=== PATIENT | male | born 1945 | race Caucasian/White ===

== ENCOUNTER 2019-04-07 10:10 | Inpatient (IN) | payer MEDICARE ==
[~2019-04-07] VITALS: Ht 185.4 cm; Wt 86.4 kg
[2019-04-07] MEDS ORDERED: TRESIBA FL100 UNIT/1 SC (13:29)
[2019-04-07] MEDS ORDERED: INVOKANA300 MG PO (13:29)
[2019-04-07] MEDS ORDERED: ELIQUIS5 MG PO (13:30)
[2019-04-07] MEDS ORDERED: CRESTOR10 MG PO (13:34)
[2019-04-07] MEDS ORDERED: HUMALOG 30100 UNITS/ SC (13:35)
--- NOTE | 2019-04-07 14:00 | NUR ---
CHRIST NOTE; DR. GEIGER NOTIFIED PATIENT CURRENTLY TAKING ELIQUIS 5MG DAILY WITH LAST DOSE 04/06/19 AM; OK TO PROCEED WITH SURGERY.
[2019-04-07 15:18] LABS: APPEARANCE CLEAR (CLEAR); BILIRUBIN NEGATIVE (NEGATIVE); COLOR YELLOW (YELLOW); GLUCOSE 1000 mg/dL (NEGATIVE); KETONE NEGATIVE (NEGATIVE); NITRITE NEGATIVE (NEGATIVE); PROTEIN NEGATIVE (NEGATIVE); SPECIFIC GRAVITY 1.015 (1.005-1.020); UROBILINOGEN NORMAL (NORMAL)
[2019-04-07 15:28] LABS: BASOPHILS 0.7 % (0-2); EOSINOPHILS 4.1 % (0-7); HEMATOCRIT 53.8 % (42.0-54.0); HEMOGLOBIN 19.1 g/dL (13.5-17.5); IMMATURE GRANULOCYTES 0.1 % (0-5); LYMPHOCYTES 22.7 % (15-50); MCH 32.9 pg (26.0-34.0); MCHC 35.5 g/dL (31.0-37.0); MCV 92.8 fL (80.0-100.0); MEAN PLATELET VOLUME 11.3 fL (7.4-10.4); MONOCYTES 7.5 % (2-11); NEUTROPHILS 64.9 % (40-80); PLATELET COUNT 187 10x3/uL (130-400); RDW 13.7 % (11.5-14.5); WBC 9.5 10x3/uL (4.8-10.8)
[2019-04-07 15:32] LABS: INR 0.95 (0.85-1.17); PROTIME 12.2 SECONDS (11.6-15.0)
[2019-04-07 15:33] LABS: APTT 28.5 SECONDS (22.8-39.4)
[2019-04-07 15:41] LABS: ANION GAP 13.5 mmol/L (8-16); CALCIUM 9.4 mg/dL (8.5-10.1); CARBON DIOXIDE 26.6 mmol/L (21.0-32.0); CREATININE - SERUM 1.1 mg/dL (0.6-1.3); POTASSIUM - SERUM 4.1 mmol/L (3.5-5.1)
[2019-04-08 06:15] VITALS: BP 138/67; BMI 25.1
--- NOTE | 2019-04-08 08:21 | NUR ---
0750- HIBICLEANSE / ALCOHOL PREP PRIOR TO CHLORAPREP
[2019-04-08 11:10] VITALS: BP 128/68
--- NOTE | 2019-04-08 11:20 | NUR ---
RECEIVED TO ROOM 2212 VIA BED FROM PACU. A/O X3. SKIN INTACT WITHOUT REDNESS EXCEPT INCISION TO RIGHT SHOULDER WHICH HAS A DRY INTACT DRESSING IN PLACE. NEURO CHECKS WNL. NO C/O PAIN AT THIS TIME. AT BEDSIDE.
[2019-04-08 11:25] VITALS: Ht 185.4 cm; Wt 86.4 kg
[2019-04-08 11:35] VITALS: BP 119/68
[2019-04-08 12:53] VITALS: BP 85/50
[2019-04-08 16:13] VITALS: BP 124/48
--- NOTE | 2019-04-08 16:47 | NUR ---
UP TO BR WITH ONE PERSON MIN ASSIST. UNABLE TO VOIDE AT THIS TIME. FSBS [address] GEIGER NOTIFIED OF SAME. NEW ORDERS RECEIVED.
--- NOTE | 2019-04-08 20:00 | NUR ---
UP AD ROXIE IN ROOM. NO COMPLAITNS OF PAIN AT PRESENT. DRESSING TO RIGHT SHOULDER INTACT WITHOUT DRAINAGE. SLING IN PLACE. IV TO LEFT HAND INTACT WITHOUT REDNESS OR EDEMA NOTED. CL IN REACH.
[2019-04-09 01:27] VITALS: BP 133/59
--- NOTE | 2019-04-09 01:30 | NUR ---
UNABLE TO VOID. BLADDER DISTENDED. IN AND OUT CATH WITH 1100 CC CLEAR YELLOW URINE RETURNED. TOLERATED WELL. .
[2019-04-09 05:45] VITALS: BP 153/64
[2019-04-09 06:29] LABS: BASOPHILS 0.4 % (0-2); EOSINOPHILS 1.4 % (0-7); HEMATOCRIT 44.9 % (42.0-54.0); IMMATURE GRANULOCYTES 0.2 % (0-5); LYMPHOCYTES 9.3 % (15-50); MCH 31.9 pg (26.0-34.0); MCHC 33.9 g/dL (31.0-37.0); MCV 94.1 fL (80.0-100.0); MEAN PLATELET VOLUME 11.3 fL (7.4-10.4); MONOCYTES 11.2 % (2-11); NEUTROPHILS 77.5 % (40-80); PLATELET COUNT 168 10x3/uL (130-400); RBC 4.77 10x6/uL (4.20-6.10); RDW 13.7 % (11.5-14.5); WBC 9.6 10x3/uL (4.8-10.8)
[2019-04-09 06:41] LABS: HEMOGLOBIN 15.2 g/dL (13.5-17.5)
[2019-04-09 06:42] LABS: ANION GAP 14.1 mmol/L (8-16); CALCIUM 8.4 mg/dL (8.5-10.1); CARBON DIOXIDE 25.3 mmol/L (21.0-32.0); CREATININE - SERUM 1.2 mg/dL (0.6-1.3); POTASSIUM - SERUM 4.4 mmol/L (3.5-5.1)
--- NOTE | 2019-04-09 08:15 | NUR ---
PT UP AMBULATING IN ROOM. NO ACUTE DISTRESS NOTED. PT DOES REPORT PAIN 6/10 AT THIS TIME TO RIGHT SHOULDER. DRESSING C/D/I TO RIGHT SHOULDER WITH SHOULDER IMMOBILIZER IN PLACE. IV TO LEFT HAND SALINE LOC'D. SITE WITHOUT REDNESS OR EDEMA. PT DOES VOICE DIFFICULTY URINATING, BUT VOICES RECENT CATH. PT VOICES WANTING TO WAIT AND BEING ABLE TO SEE IF ABLE TO VOID. DENIES FURTHER NEEDS AT THIS TIME. CL WITHIN REACH. ENCOURAGED TO CALL WITH NEEDS. CONTINUE POC
[2019-04-09 09:39] VITALS: BP 93/60
--- NOTE | 2019-04-09 12:20 | NUR ---
PT REPORTS INABILITY TO VOID, VOICING "I GIVE IT 10 DROPS AT A TIME AND THAT IS IT." PT BLADDER SCANNED AT THIS TIME 902ML SCANNED. INFORMED PT THAT STAFF WOULD CONTACT REGARDING MATTER. PT VOICES UNDERSTANDING.
--- NOTE | 2019-04-09 12:25 | NUR ---
CONTACTED DR. GEIGER REGARDING PT INABILITY TO VOID. ORDERED FOR PT TO HAVE F/C PLACED, START SEPTRA 1 TAB BID PO UNTIL CATHETER REMOVED AND CONSULT UROLOGY. ORDERS PLACED
[2019-04-09 12:56] VITALS: BP 151/67
--- NOTE | 2019-04-09 13:02 | NUR ---
ENTERED PT ROOM TO INITIATE F/C. PT VOICES VOIDING IN TOILET. DISCUSSED ORDERS FROM DR. GEIGER FOR F/C PLACEMENT. PT VOICES THAT HE DOES NOT PRESENTLY FEEL THAT HE NEEDS A F/C, REFUSES F/C PLACEMENT AT THIS TIME. URINAL PROVIDED TO PT TO VOID IN URINAL TO BE ABLE TO MONITOR URINE OUTPUT. PT VOICES UNDERSTANDING
[2019-04-09 17:23] VITALS: BP 137/68
[2019-04-09 21:10] VITALS: BP 174/90
[2019-04-10 01:14] VITALS: BP 129/61
--- NOTE | 2019-04-10 05:00 | NUR ---
I have reviewed this patient and I concur with the Shift Assessment completed by the Licensed Practical Nurse today this shift.
[2019-04-10 05:38] VITALS: BP 105/60
[2019-04-10 06:04] LABS: BASOPHILS 0.3 % (0-2); EOSINOPHILS 1.6 % (0-7); HEMATOCRIT 45.3 % (42.0-54.0); HEMOGLOBIN 15.4 g/dL (13.5-17.5); IMMATURE GRANULOCYTES 0.3 % (0-5); LYMPHOCYTES 13.6 % (15-50); MCH 31.8 pg (26.0-34.0); MCV 93.6 fL (80.0-100.0); MEAN PLATELET VOLUME 11.4 fL (7.4-10.4); MONOCYTES 13.4 % (2-11); NEUTROPHILS 70.8 % (40-80); PLATELET COUNT 192 10x3/uL (130-400); RBC 4.84 10x6/uL (4.20-6.10); RDW 13.8 % (11.5-14.5); WBC 11.9 10x3/uL (4.8-10.8)
[2019-04-10] MEDS ORDERED: NORCO-7.5 PO (07:53)
[2019-04-10] MEDS ORDERED: VALIUM5 MG PO (07:54)
[2019-04-10 09:40] VITALS: BP 116/66
--- NOTE | 2019-04-10 11:09 | NUR ---
IV THERAPY REMOVED FROM LEFT HAND. TIP INTACT. NO CO OF PAIN. DISCHARGE INSTRUCTIONS GIVEN AND PATIENT VERBALIZED UNDERSTANDING. WAITING ON RIDE.
--- NOTE | 2019-04-10 12:07 | MORECARE ---
CASE MANAGEMENT DISCHARGE SUMMARY PATIENT: URSZULA MEHTA UNIT: [id number] ADM DATE: 04/08/19 AGE: 73 : 46 SEX: M ROOM/BED: D.2212 AUTHOR: TAVIA ROSADO PHYSICIAN: REFERRING PHYSICIAN: TONY GIEGER MD DATE OF SERVICE: 04/10/19 Discharge Plan Patient Name: URSZULA MEHTA Facility: [facility]:[place] : 1945 Planned Disposition: Home with Home Health Anticipated Discharge Date: Discharge Date: 04/10/2019 Expected LOS: Initial Reviewer: [email or web address] Initial Review Date: 04/08/2019 Generated: 04/10/19 1:06 pm External [facility] Contact Date: Service Request Date: Service Type: Resolution: Reviewer: Comments: Patient Name: URSZULA MEHTA Page [id number] at 1207 All edits/amendments must be made on the electronic document DICTATION DATE: 04/10/19 1206 MANAGER GRANT: RAS 04/10/19 1206 RPT#: [id number] DC DATE:04/10/19 STATUS: DIS IN [facility] [address] [place] [address] END OF REPORT
--- NOTE | 2019-04-10 12:14 | MORECARE ---
CASE MANAGEMENT DISCHARGE SUMMARY PATIENT: URSZULA MEHTA UNIT: [id number] ADM DATE: 04/08/19 AGE: 73 : 47 SEX: M ROOM/BED: D.2212 AUTHOR: TAVIA ROSADO PHYSICIAN: REFERRING PHYSICIAN: TONY GEIGER MD DATE OF SERVICE: 04/10/19 Discharge Plan Patient Name: URSZULA MEHTA Facility: [facility]:[place] : 1945 Planned Disposition: Home with Home Health Anticipated Discharge Date: Discharge Date: 04/10/2019 Expected LOS: Initial Reviewer: [email or web address] Initial Review Date: 04/08/2019 Generated: 04/10/19 1:14 pm Comments DCP- Discharge Planning Updated by [email or web address]: Cindy Mak on 04/10/19 11:[address] Patient Name: URSZULA MEHTA Admission Status: Elective Accout number: [id number] Admission Date: 04-08-2019 : 1945 Admission Diagnosis: Attending: TONY GEIGER Current LOS: 2 Anticipated DC Date: Planned Disposition: Home with Home Health Primary Insurance: MEDICARE A & B Discharge Planning Comments: CM met with patient to complete initial dc planning assessment. CM educated patient on the CM role and verbal consent given by patient to complete assessment. Patient lives at home with his where he is independent with his care . At discharge patient plans to return home and feels this is a safe discharge. CM discussed availability of home health, rehab services, and medical equipment. Dr Blood wants him to have home health, EMILIA signed with [facility] in [place]. Patient is discharging home today. Referral sent to [facility] and they will accept patient. Patient denied known discharge needs at this time. CM will continue to follow and will assist as needed with dc plans/needs. Energy Sales Broker: Cindy Mak DCPIA - Discharge Planning Initial Assessment Updated by [email or web address]: Cindy Mak on 04/10/19 12:11 pm * Is the patient Alert and Oriented? Yes * How many steps to enter\exit or inside your home? * PCP [facility] * [facility] * Preadmission Environment Home with Family * ADLs Independent * Equipment None * List name and contact numbers for known caregivers / representatives who currently or will assist patient after discharge: JUAN () [phone] * Verbal permission to speak to the caregivers and representatives has been obtained from the patient. N/A * Community resources currently utilized None * Additional services required to return to the preadmission environment? Yes * Can the patient safely return to the preadmission environment? Yes * Has this patient been hospitalized within the prior 30 days at any hospital? No Last DP export: 04/10/19 11:07 a Patient Name: URSZULA MEHTA Page [id number] at 1214 All edits/amendments must be made on the electronic document DICTATION DATE: 04/10/19 1214 COPY DIRECTOR: RAS 04/10/19 1214 RPT#: [id number] DC DATE:04/10/19 STATUS: DIS IN [facility] [address] [place] [address] END OF REPORT
--- NOTE | 2019-04-11 12:10 | MORECARE ---
CASE MANAGEMENT DISCHARGE SUMMARY PATIENT: URSZULA MEHTA UNIT: [id number] ADM DATE: 04/08/19 AGE: 73 : 46 SEX: M ROOM/BED: D.2212 AUTHOR: TAVIA ROSADO PHYSICIAN: REFERRING PHYSICIAN: TONY GEIGER MD DATE OF SERVICE: 04/11/19 Discharge Plan Patient Name: URSZULA MEHTA Facility: [facility]:[place] : 1945 Planned Disposition: Home with Home Health Anticipated Discharge Date: Discharge Date: 04/10/2019 Expected LOS: Initial Reviewer: [email or web address] Initial Review Date: 04/08/2019 Generated: 04/11/19 1:10 pm Comments DCP- Discharge Planning Updated by [email or web address]: Cindy Mak on 04/10/19 11:[address] Patient Name: URSZULA MEHTA Admission Status: Elective Accout number: [id number] Admission Date: 04-08-2019 : 1945 Admission Diagnosis: Attending: TONY GEIGER Current LOS: 2 Anticipated DC Date: Planned Disposition: Home with Home Health Primary Insurance: MEDICARE A & B Discharge Planning Comments: CM met with patient to complete initial dc planning assessment. CM educated patient on the CM role and verbal consent given by patient to complete assessment. Patient lives at home with his where he is independent with his care . At discharge patient plans to return home and feels this is a safe discharge. CM discussed availability of home health, rehab services, and medical equipment. Dr Blood wants him to have home health, EMILIA signed with [facility] in [place]. Patient is discharging home today. Referral sent to [facility] and they will accept patient. Patient denied known discharge needs at this time. CM will continue to follow and will assist as needed with dc plans/needs. Wind Turbine Mechanic: Cindy Mak DCPIA - Discharge Planning Initial Assessment Updated by [email or web address]: Cindy Mak on 04/10/19 12:11 pm * Is the patient Alert and Oriented? Yes * How many steps to enter\exit or inside your home? * PCP [facility] * [facility] * Preadmission Environment Home with Family * ADLs Independent * Equipment None * List name and contact numbers for known caregivers / representatives who currently or will assist patient after discharge: JUAN () [phone] * Verbal permission to speak to the caregivers and representatives has been obtained from the patient. N/A * Community resources currently utilized None * Additional services required to return to the preadmission environment? Yes * Can the patient safely return to the preadmission environment? Yes * Has this patient been hospitalized within the prior 30 days at any hospital? No Last DP export: 04/10/19 11:14 a Patient Name: URSZULA MEHTA Page [id number] at 1210 All edits/amendments must be made on the electronic document DICTATION DATE: 04/11/19 1210 CIVIL PREPAREDNESS OFFICER: RAS 04/11/19 1210 RPT#: [id number] DC DATE:04/10/19 STATUS: DIS IN [facility] [address] [place] [address] END OF REPORT
== END 2019-04-10 12:03 | disposition home health service (06) | DRG 483 ==
LOC: D.MS 04-08 05:27 → D.SDCHOLD 04-08 05:27 → D.MS 04-08 10:44
PROVIDERS: ADMIT Orthopaedic Surgery; ATTEND Orthopaedic Surgery
PROC: 0RRJ0JZ Replacement of Right Shoulder Joint with Synthetic Substitute, Open Approach (ICD-10-PCS; principal; 2019-04-08 07:30)
DX: M19.011 Primary osteoarthritis, right shoulder (principal); E11.9 Type 2 diabetes mellitus without complications

== ENCOUNTER → 2019-04-14 18:08 | Outpatient (CLI) | payer MEDICARE ==
[2019-04-08 11:25] VITALS: BMI 25.1
[~2019-04-14 18:08] MED LIST: CRESTOR10 MG PO; ELIQUIS5 MG PO; HUMALOG 30100 UNITS/ SC; INVOKANA300 MG PO; NORCO-7.5 PO; TRESIBA FL100 UNIT/1 SC; VALIUM5 MG PO
== END | disposition home or self-care (01) ==
LOC: D.US 17:30
PROVIDERS: ATTEND Orthopaedic Surgery
DX: R60.0 Localized edema (principal)

== ENCOUNTER 2019-04-14 19:01 | Emergency (ER) | payer MEDICARE ==
[~2019-04-14] VITALS: Ht 185.4 cm; Wt 89.1 kg
[2019-04-14 19:24] VITALS: BP 135/73; Ht 185.4 cm; Wt 89.1 kg
[2019-04-14] MEDS ORDERED: ELIQUIS5 MG PO (20:38)
== END 2019-04-14 20:53 | disposition home or self-care (01) ==
LOC: D.ER 19:01
DX: I82.621 Acute embolism and thrombosis of deep veins of right upper extremity (principal)